=== PATIENT | female | born 1960 ===

== ENCOUNTER 2024-06-05 05:11 | Day surgery (SDC) | payer OTHER ==
[2024-06-02 11:54] VITALS: BP 115/63
[~2024-06-05] VITALS: Ht 154.9 cm; Wt 88.5 kg
[~2024-06-05 05:11] MED LIST: CLONAZEPAM0.5 MG PO; FAMOTIDINE40 MG PO; FLOXETINE PO; LOSARTAN-HCTZ1 EACH PO; PROTONIX20 MG PO; SIMVASTATIN20 MG PO; SYMBICORT 16010.2 GM IH
[2024-06-05] MEDS ORDERED: CEFTRIAXONE SODIUM 2,000 MG VIAL ONE (06:40)
[2024-06-05] MEDS ORDERED: BUPIVACAINE HCL/MPF 0.5% 30ML VIAL ONE (07:10)
[2024-06-05] MEDS ORDERED: DIBUCAINE 30 GM TUBE ONE (07:10)
[2024-06-05] MEDS ORDERED: POVIDONE-IODINE 118 ML BOTT TOP ONE ×2 (07:10→08:00)
[2024-06-05] MEDS ORDERED: HEMOSTATIC MATRIX WITH THROMBIN KIT TOP ONE (07:10)
[2024-06-05] MEDS ORDERED: LIDOCAINE HCL 1%/EPINEPHRINE 20ML VIAL IJ ONE (07:11)
[2024-06-05] MEDS ORDERED: HEMOSTATIC MATRIX 1 KIT KIT TOP ONE ×2 (07:13→08:00)
[2024-06-05] MEDS ORDERED: METRONIDAZOLE/SODIUM CHLORIDE 500 MG/100 ML PIGGYBACK IV ONE (08:00)
[2024-06-05] MEDS ORDERED: DIBUCAINE 30 GM TUBE RECTAL ONE (08:00)
[2024-06-05] MEDS ORDERED: LIDOCAINE HCL 1% 20 ML VIAL IJ ONE (08:00)
[2024-06-05] MEDS ORDERED: CEFTRIAXONE SODIUM 2,000 MG VIAL IV ONE (08:00)
[2024-06-05] MEDS ORDERED: BUPIVACAINE HCL 30 ML VIAL IJ ONE (08:00)
[2024-06-05] MEDS ORDERED: PERCOCET 5-3251 EACH PO (08:25)
[2024-06-05] MEDS ORDERED: RECTICARE30 GM TOP (08:26)
[2024-06-05] MEDS ORDERED: ENULOSE10 GM/15 M PO (09:23)
[2024-06-05] MEDS ORDERED: MORPHINE SULFATE 4 MG/ML VIAL IV ONE (12:35)
[2024-06-05] MEDS ORDERED: TAMSULOSIN HCL 0.4 MG CAP PO ONE (15:18)
== END 2024-06-05 15:30 | disposition home or self-care (01) ==
LOC: CIR.AMB 05:11
PROVIDERS: ATTEND Surgery
DX: D12.9 Benign neoplasm of anus and anal canal (principal); Z88.6 Allergy status to analgesic agent; I10 Essential (primary) hypertension; E78.00 Pure hypercholesterolemia, unspecified; J45.909 Unspecified asthma, uncomplicated